=== PATIENT | male | born 1975 | race Two or more races ===

== ENCOUNTER 2024-08-08 21:12 | Observation (INO) ==
[2024-08-08 23:01] LABS: ABS Eosinophils 0.1 10^3/uL (0.0-0.5); ABS Lymphocytes 1.4 10^3/uL (1.0-4.8); ABS Monocytes 0.4 10^3/uL (0.0-1.1); ABS Neutrophils 8.1 10^3/uL (1.5-7.6); ABS Nucleated RBC 0.01 10^3/ul; Eosinophil % 0.9 %; Hematocrit 36.1 % (38-53); Lymphocyte % 13.7 %; Mean Corpuscular Hemoglobin 28.4 pg (27-33); Mean Corpuscular Hgb Conc 33.3 g/dL (31-36); Mean Corpuscular Volume 85.1 fL (80-97); Mean Platelet Volume 8.1 fL (7.5-11.2); Nucleated Red Blood Cells % 0.1 %/100WBC (0.0-0.8); Platelet Count 226 10^3/uL (150-450); Red Blood Count 4.24 10^6/uL (4.06-5.63); Red Cell Distribution Width 15.5 % (12-17)
[2024-08-08 23:27] LABS: High Sens Troponin Baseline 72 pg/mL (<20)
[2024-08-08 23:57] LABS: ALT 10 U/L (7-52); Acetaminophen < 15 mcg/mL; Albumin 4.3 g/dL (3.2-5.2); Albumin/Globulin Ratio 1.7 (1-3); Alcohol, S < 13 mg/dL (<13); Alkaline Phosphatase 88 U/L (35-149); Anion Gap 4 mmol/L (2-16); Blood Urea Nitrogen 13 mg/dL (6-24); CO2 Carbon Dioxide 28 mmol/L (22-32); Calcium 10.6 mg/dL (8.6-10.3); Chloride 106 mmol/L (101-111); Creatine Kinase 128 U/L (10-223); Globulin 2.6 g/dL (2-4); Glucose 82 mg/dL (70-100); Salicylate < 2.50 mg/dL (<30); Sodium 138 mmol/L (135-145); Total Bilirubin 0.4 mg/dL (0.2-1.0); Total Protein 6.9 g/dL (6.4-8.9); eGFR CKD-EPI 109.8 (>60)
[2024-08-09 01:45] LABS: Potassium Redraw 4.3 mmol/L (3.5-5.0)
[2024-08-09 02:50] LABS: High Sensitivity Troponin 3 Hr 107 pg/mL (<20)
[2024-08-09] MEDS ORDERED: Senna TAB 8.6 mg TAB PO PRN (05:25)
[2024-08-09] MEDS ORDERED: Polyethylene Glycol 3350 17 GM PACKET PO PRN (05:25)
[2024-08-09] MEDS ORDERED: Ondansetron 4 mg VIAL 2 MG/ML 2 ml VIAL IV PRN (05:25)
[2024-08-09] MEDS ORDERED: Sulfur Hexaflouride MICROSPHR 25 MG VIAL IV PRN ×3 (05:32→10:57)
[2024-08-09 07:27] LABS: High Sensitivity Troponin 1 Hr 79 pg/mL (<20)
[2024-08-09] MEDS: Heparin 5000 UNITS/ML 1 mL VIAL IV SCH (07:45)
[2024-08-09] MEDS: Heparin DRIP 25,000 UNITS BAG 25,000 UNITS/250 ML BAG IV SCH (07:45)
[2024-08-09 08:16] LABS: Activated Partial Thrombo Time 31.7 seconds (26.0-38.0)
[2024-08-09 08:21] LABS: ABS Eosinophils 0.1 10^3/uL (0.0-0.5); ABS Lymphocytes 2.6 10^3/uL (1.0-4.8); ABS Monocytes 0.4 10^3/uL (0.0-1.1); ABS Neutrophils 4.1 10^3/uL (1.5-7.6); ABS Nucleated RBC 0.01 10^3/ul; Eosinophil % 1.8 %; Hematocrit 32.7 % (38-53); Lymphocyte % 35.9 %; Mean Corpuscular Hemoglobin 28.4 pg (27-33); Mean Corpuscular Hgb Conc 33.6 g/dL (31-36); Mean Corpuscular Volume 84.7 fL (80-97); Mean Platelet Volume 8.1 fL (7.5-11.2); Nucleated Red Blood Cells % 0.1 %/100WBC (0.0-0.8); Platelet Count 210 10^3/uL (150-450); Red Blood Count 3.86 10^6/uL (4.06-5.63); Red Cell Distribution Width 15.7 % (12-17); White Blood Count 7.3 10^3/uL (3.6-10.2)
[2024-08-09 09:09] LABS: Creatinine, Serum 0.79 mg/dL (0.67-1.17); Potassium 4.4 mmol/L (3.5-5.0); eGFR CKD-EPI 110.3 (>60)
[2024-08-09] MEDS: Buprenorp/Nalox 8-2 MG FILM SL SCH (10:22)
[2024-08-09 10:40] LABS: TSH Ultra Thyroid Stim Horm 0.55 mcIU/mL (0.34-5.60)
[2024-08-09 10:45] LABS: High Sensitivity Troponin 3 Hr 55 pg/mL (<20)
[2024-08-09 10:48] LABS: Ferritin 109.5 ng/mL (24-336)
[2024-08-09 10:51] LABS: Folate 9.08 ng/mL (5.90-24.80)
[2024-08-09 14:13] VITALS: BP 117/75
== END 2024-08-09 18:29 ==
LOC: EDHOLD 21:12 → ED 21:12 → MEDTELE 08-09 08:03
PROVIDERS: ADMIT Internal Medicine; ATTEND Student in an Organized Health Care Education/Training Program